=== PATIENT | female | born 2000 | race Caucasian/White ===

== ENCOUNTER 2024-02-11 23:57 | Emergency (ER) | payer MEDICAID ==
[~2024-02-11] VITALS: Ht 160 cm; Wt 55.0 kg
[2024-02-12 00:04] VITALS: O2SAT 97
[2024-02-12] MEDS: MORPHINE SULFATE 4 MG/ML INJ (FOR IV/IM USE) IM ONE (01:30)
[2024-02-12 02:15] LABS: HCG SCREEN NEGATIVE
[2024-02-12] MEDS ORDERED: TOPUD MT (03:32)
[2024-02-12] MEDS ORDERED: IBUP-2028 MT (03:32)
[2024-02-12] MEDS: LIDOCAINE HCL/PF 1% 10 MG/ML 5ML VIAL INFIL ONE (03:45)
[2024-02-12] MEDS: CEFTRIAXONE SODIUM 2G VIAL IM ONE (03:45)
[2024-02-12] MEDS ORDERED: CEPH500C2 MT (03:49)
[2024-02-12 04:41] VITALS: BP 114/68; PULSE 78; RESP 16; TEMP 98.4
== END 2024-02-12 04:43 | disposition home or self-care (01) ==
LOC: ER 02-12 00:06
DX: S81.012A Laceration without foreign body, left knee, initial encounter (principal); S00.83XA Contusion of other part of head, initial encounter; V49.9XXA Car occupant (driver) (passenger) injured in unspecified traffic accident, initial encounter; Y93.89 Activity, other specified; Y92.89 Other specified places as the place of occurrence of the external cause; Y99.8 Other external cause status
CPT/HCPCS: 84703; 73060; 73090; 73562; 12002; 96372; 99284; J0696; J3490; J2270; Z7610 ×3; L1830